=== PATIENT | male | born 1975 ===

== ENCOUNTER 2017-01-10 07:00 | Inpatient (IN) | payer OTHER ==
[~2017-01-10] VITALS: Ht 175.3 cm; Wt 57.2 kg
[2017-01-25] VITALS (11 sets, daily range): BP systolic 124–164; BP diastolic 67–93
[2017-01-25] MEDS ORDERED: NKM (06:13)
[2017-01-25] MEDS ORDERED: LR 1000ml 1,000 ML IVLG SCH (06:22)
--- NOTE | 2017-01-25 06:23 | Anethesia Preoperative Eval ---
Anesthesia Pre-op PMH/ROS General Date of Evaluation: Jan 25, 2017 Time of Evaluation: 07:11 Anesthesiologist: Clyde ASA Score: ASA 2 Mallampati Score Class I : Soft palate, uvula, fauces, pillars visible Class II: Soft palate, uvula, fauces visible Class III: Soft palate, base of uvula visible Class IV: Only hard plate visible Mallampati Classification: Class II Surgeon: Kathy Diagnosis: Neck Pain Surgical Procedure: ACDF C5-6 Anesthesia History: none Social History: current smoker Family History: no anesthesia problems Allergies: Coded Allergies: No Known Allergies (Unverified , 01/23/17) Medications: see eMAR Past Medical History Cardiovascular: Reports: HTN Pulmonary: Reports: other - Smoker Anesthesia Pre-op Phys. Exam Physician Exam Last Vital Signs Date Time Temp Pulse Resp B/P (MAP) Pulse Ox O2 Delivery O2 Flow Rate FiO2 01/25/17 06:04 98.6 67 20 137/67 100 Room Air Constitutional: NAD Neurologic: CN 2-12 intact Cardiovascular: RRR Respiratory: CTA Gastrointestinal: S/NT/ND Airway Exam Mallampati Score: Class II MO: full ROM: limited Teeth: intact Anesthesia Pre-op A/P Risk Assessment & Plan Assessment: ASA 2 Plan: GA, BIS GlideScope Status Change Before Surgery: No Pre-Antibiotics Dru Grams Ancef IV Given Within 1 Hr of Incision: Yes Time Given: 07:31 Otto Tang MD Jan 25, 2017 06:23
[2017-01-25] MEDS ORDERED: Thrombin 5000 units TOPIC ONE (06:26)
[2017-01-25] MEDS ORDERED: Surgicel 4in x 8in TOPIC ONE (06:26)
[2017-01-25] MEDS ORDERED: Vancomycin 1gm inj IVPB ONE (06:27)
[2017-01-25] MEDS ORDERED: Lidocaine 1% Plain 30 ml INJ ONE ×2 (06:27→07:00)
[2017-01-25] MEDS ORDERED: Bacitracin 50000 Units Vial ONE (06:28)
[2017-01-25] MEDS ORDERED: Norco 5mg/325mg tab ORAL PRN (06:30)
[2017-01-25] MEDS ORDERED: Metoclopramide 10mg/2ml Inj IVP PRN (06:30)
[2017-01-25] MEDS ORDERED: LORazepam Inj 2mg/ml 1ml IV PRN (06:30)
[2017-01-25] MEDS ORDERED: Ketorolac 30mg Inj IV PRN ×2 (06:30)
[2017-01-25] MEDS ORDERED: Atropine Inj 1mg/10ml Syr IV PRN (06:30)
[2017-01-25] MEDS ORDERED: Ketorolac 60mg Inj IV PRN (06:30)
[2017-01-25] MEDS ORDERED: Midazolam 2mg/2ml Inj IVP PRN (06:30)
[2017-01-25] MEDS ORDERED: Norco 7.5mg/325mg tab ORAL PRN (06:30)
[2017-01-25] MEDS ORDERED: DiphenhydrAMINE 50mg/ml Inj IVP PRN (06:30)
[2017-01-25] MEDS ORDERED: Hydromorphone 0.5mg/0.5ml inj IVP PRN (06:30)
[2017-01-25] MEDS ORDERED: Acetaminophen (Non formulary) 100 ML IV ONE (06:30)
[2017-01-25] MEDS ORDERED: oxyCODONE HCL/Acetaminophen 5/325mg ORAL PRN (06:30)
--- NOTE | 2017-01-25 06:43 | Immediate Post-Op Evaluation ---
Immediate Post-Op Evalulation Immediate Post-Op Evalulation Procedure: ADR C5-6 Date of Evaluation: Jan 25, 2017 Time of Evaluation: 09:39 IV Fluids: 700 LR Blood Products: 0 Estimated Blood Loss: 25 Urinary Output: 0 Blood Pressure Systolic: 125 Blood Pressure Diastolic: 80 Pulse Rate: 69 Respiratory Rate: 16 O2 Sat by Pulse Oximetry: 98 Temperature (Fahrenheit): 98.2 Pain Score (1-10): 2 Nausea: No Vomiting: No Complications 0 Patient Status: awake, reacts, patent, extubated, none Hydration Status: adequate Dru Grams Ancef IV Given Within 1 Hr of Incision: Yes Time Given: 07:31 Otto Tang MD Jan 25, 2017 06:43
[2017-01-25] MEDS ORDERED: Sterile Water Irrig 1000ml IRRIG ONE (07:00)
[2017-01-25] MEDS ORDERED: ceFAZolin sod 1 GM in NS 55 ML IVPB ONE (07:00)
[2017-01-25] MEDS ORDERED: fentaNYL 100 mcg/2 mL IV ONE (07:00)
[2017-01-25] MEDS ORDERED: Propofol 1,000mg/ 100ml btl IV ONE (07:00)
[2017-01-25] MEDS ORDERED: Glycopyrrolate 0.2mg/ml 1ml Vial ONE (07:00)
[2017-01-25] MEDS ORDERED: Lidocaine 1% MPF 10mg/ml 5ml ONE (07:00)
[2017-01-25] MEDS ORDERED: Neostigmine 1mg/ml 10ml Inj ONE (07:00)
[2017-01-25] MEDS ORDERED: NS Irrig 1000ml ONE (07:00)
[2017-01-25] MEDS ORDERED: Zemuron 50mg/5ml Inj IV ONE (07:00)
[2017-01-25] MEDS ORDERED: LR 1000ml ONE (07:00)
[2017-01-25] MEDS ORDERED: Sodium Chloride 10ml vial INJ ONE (07:00)
[2017-01-25] MEDS ORDERED: Dexamethasone 20mg/5ml IVP ONE (07:00)
--- NOTE | 2017-01-25 07:20 | Pre-Procedure Note/Attestation ---
Pre-Procedure Note/Attestation Complete Prior to Procedure Planned Procedure: not applicable Procedure Narrative: C5-C6 ADR possible fusion Indications for Procedure Pre-Operative Diagnosis: Cervical Pain - post trauma Attestation I attest that I discussed the nature of the procedure; its benefits; risks and complications; and alternatives (and the risks and benefits of such alternatives ), prior to the procedure, with the patient (or the patient's legal field sales representative). I attest that, if there was a reasonable possibility of needing a blood transfusion, the patient (or the patient's legal field sales representative) was given the [facility] standardized written summary, pursuant to the Ortega Michael Blood Safety Act ([place] Health and Safety Code # 1645, as amended). I attest that I re-evaluated the patient just prior to the surgery and that there has been no change in the patient's H&P, except as documented below: LEANN RAYMOND Jan 25, 2017 07:20
[2017-01-25] MEDS ORDERED: Norco 10mg/325mg tab ORAL PRN ×4 (08:30→16:45)
[2017-01-25] MEDS ORDERED: oxyCODONE 5mg IR tab ORAL PRN (08:30)
[2017-01-25] MEDS: D5 1/2NS 1,000 ML IV SCH ×3 (09:15→17:15)
--- NOTE | 2017-01-25 09:15 | Brief Operative Note ---
Immediate Post Operative Note Operative Note Pre-op Diagnosis: Cervical Pain - post trauma Procedure: ADR C5-6 High Power Xray SSEP Post-op Diagnosis: same as pre-op Surgeon: Kathy HAN Tetryl Blender Operator: Braulio WHITTINGTON Anesthesiologist: Clyde HAN Anesthesia: general Specimen: none Complications: none Condition: stable Fluids: anesthesia Estimated Blood Loss: minimal Drains: none Implant(s) used?: Yes LEANN RAYMOND Jan 25, 2017 09:15
[2017-01-25] MEDS: fentaNYL 100 mcg/2 mL IV PRN ×2 (10:06→11:52)
--- NOTE | 2017-01-25 10:29 | Diagnostic Imaging Report ---
Indication: PAIN, left upper extremity pain, intraoperative Technique: Intraoperative images Comparison: None Findings: Initial image demonstrates a surgical tool projected at the anterior aspect of the C5-6 disc. Subsequent images document placement of a disc prosthesis at the C5-6 disc. This appears well aligned Impression: Intraoperative imaging, as described
[2017-01-25] MEDS ORDERED: HYDROmorphone 1mg/ml Carpuject SUBQ PRN (12:30)
[2017-01-25] MEDS ORDERED: LORazepam 0.5mg tab ORAL PRN (12:30)
[2017-01-25] MEDS ORDERED: Chloraseptic Spray 20mL Bottle ORAL PRN (13:15)
[2017-01-25] MEDS ORDERED: Dronabinol 2.5mg Cap ORAL SCH (14:00)
[2017-01-25] MEDS ORDERED: ceFAZolin sod 2 GM in D5W 55 ML IV SCH (15:30)
[2017-01-25] MEDS ORDERED: CEFAZOLIN SOD IV SCH (15:30)
[2017-01-25] MEDS ORDERED: D5W IV SCH (15:30)
[2017-01-25] MEDS ORDERED: ceFAZolin 2gm/50ml Premix 50 ML IV SCH (15:30)
--- NOTE | 2017-01-25 15:45 | Operative Note - Dictated ---
DATE OF OPERATION: 01/25/2017 SURGEON: Corona Chavez, Ph.D., M.D. CASING TRIMMER: PK Godfrey. ANESTHESIOLOGIST: Otto Tang M.D. ANESTHESIA: General with intubation. ESTIMATED BLOOD LOSS: Minimal. COMPLICATIONS: None. POSTOPERATIVE CONDITION: Good/stable. ADMITTING/PREOPERATIVE DIAGNOSIS: Posttraumatic cervical neck pain. POSTOPERATIVE DIAGNOSIS: Posttraumatic cervical neck pain. OPERATIVE PROCEDURE: 1. Artificial disk replacement, C5-C6. 2. High-power magnification dissection. 3. SSEP monitoring. 4. Intraoperative fluoroscopy interpreted by surgeon. DESCRIPTION OF PROCEDURE: The patient was brought to the operating room and in supine position general anesthesia with intubation was induced. IV antibiotics, intravenous Decadron were administered 30 minutes prior to incision time. After appropriate positioning, a spinal needle was taped to the right side of the neck with tape not penetrating into the skin and a cross-table x-ray was obtained interpreted by surgeon demonstrating a correct level for further dissection. Level was marked. Needle removed. Anterior cervical spine was sterilely prepped and draped free in usual sterile fashion. Left transverse incision of the appropriate interval was sharply placed through dermis and epidermis. Electrocautery dissection was carried through the subcutaneous tissue to the level of the platysmas muscle that was identified, isolated, and transected in line with the incision. Blunt dissection was carried medial to the sternocleidomastoid muscle and carotid sheath through the deep cervical and pretracheal fascia in midline between the right and left longus colli muscles. A spinal needle was placed into the disk space with the needle bent at 90 degree angle so as to avoid penetration greater than 3 mm. Cross-table image was obtained under sterile conditions, interpreted by surgeons demonstrating C5-C6. Level was marked. Needle removed. Longus coli muscle was elevated. Elevation 3 mm in the mediolateral extent subperiosteal. Retractors placed. Annulotomy performed. Diskectomy to the posterior longitudinal ligament. Midas Cristian bur and curettage in preparation of endplates. Posterior longitudinal ligament resected under high-power magnification. No dural tears or leaks anytime during the procedure. SSEP monitoring stable at all times. Trial placed, cross-table imaging obtained interpreted by surgeon as correct. Sequential drilling, real cutting, and placement of the appropriately sized prosthesis at C5-C6. X-ray confirmation with excellent alignment and position. All traction on the neck 10 pounds was removed prior to initiation of the artificial disk replacement. Wound was irrigated with antibiotic-containing saline. Exploration under high-power magnification did not reveal any obvious excoriation or laceration of vital structures. FloSeal applied after copious irrigation. Reapproximation of platysmas muscle with Vicryl suture material. Subcuticular reapproximation with dermis and epidermis followed with surgical strips and Dermabond. Sterile bandage applied after Dermabond had dried. Bandage maintained in place with tape. The patient awakened and extubated in the operating room and transported to postop recovery in good stable condition. Corona Chavez M.D. DR: Sharron JOB#: [id number] CC:
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
[2017-01-25] MEDS ORDERED: NORCO 10-325 T1 EACH ORAL (16:35)
[2017-01-25] MEDS ORDERED: Tubing IV Secondary IV ONE (19:19)
--- NOTE | 2017-01-26 10:04 | Discharge Summary ---
Discharge Summary Hospital Course Date of Admission Jan 25, 2017 at 05:21 Date of Discharge Jan 25, 2017 at 19:20 Admitting Diagnosis HPI Aki Atkins is a 41 year old male who was admitted on Jan 25, 2017 at 05:21 for Cervical Neck Pain Hospital Course [id number] Discharge Discharge Disposition Patient was discharged to Home (01) Discharge Diagnoses: Birgit Coronado NP Jan 26, 2017 10:04
[2017-01-26 15:59] VITALS: BP 148/72
--- NOTE | 2017-01-26 15:59 | 48 Hour Post Anesthesia Eval ---
Post Anesthesia Evaluation Procedure: ADR C5-6 Date of Evaluation: Jan 25, 2017 Time of Evaluation: 16:54 Blood Pressure Systolic: 148 0: 72 Pulse Rate: 64 Respiratory Rate: 20 Temperature (Fahrenheit): 97.5 O2 Sat by Pulse Oximetry: 98 Airway: patent Nausea: No Vomiting: No Pain Intensity: 2 Hydration Status: adequate Cardiopulmonary Status: stable Mental Status/LOC: patient returned to baseline Follow-up Care/Observations: n/a Post-Anesthesia Complications: none Follow-up care needed: ready to discharge FELICITY DINERO M.D. Jan 26, 2017 15:59
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
== END 2017-01-25 19:20 | disposition home or self-care (01) | DRG 518 ==
LOC: SDSOVERFLO 01-25 05:21 → 3E 01-25 12:19
PROC: 0RR30JZ Replacement of Cervical Vertebral Disc with Synthetic Substitute, Open Approach (ICD-10-PCS; principal; 2017-01-25 07:00)
DX: M50.222 Other cervical disc displacement at C5-C6 level (principal); F17.200 Nicotine dependence, unspecified, uncomplicated; V89.2XXS Person injured in unspecified motor-vehicle accident, traffic, sequela
CPT/HCPCS: 36415; 72040; 76001; 86850; 86900; 86901; 87081; 94003; 94150; J2405; J2710; J2765